=== PATIENT | male | born 1990 | race Caucasian/White ===

== ENCOUNTER 2023-11-11 18:18 | Outpatient (CLI) | payer SELFPAY | END 2023-11-11 23:59 | disposition critical access hospital (66) | LOC: EMS 18:18 | DX: Z04.6 Encounter for general psychiatric examination, requested by authority (principal); R46.2 Strange and inexplicable behavior; R41.82 Altered mental status, unspecified; Z78.1 Physical restraint status | CPT/HCPCS: A0425; A0429 ==

== ENCOUNTER 2023-11-11 18:40 | Emergency (ER) | payer SELFPAY ==
--- NOTE | 2023-11-11 18:58 | ED Physician Documentation ---
History of Present Illness - Stated complaint Stated Complaint: LAW - History obtained from History obtained from: Patient - Additonal information Additional information: He presents by ambulance on an LAW. He was walking in the street naked. Interestingly he admits to doing this but really just cannot say why. Denies history of psychosis, drug use except occasional marijuana. Denies extreme stress. States he lives with his ex and 4-year-old daughter. He has a good job and does not take any medications. PD PAST MEDICAL HISTORY - Present Medications Home Medications: Ambulatory Orders Medication Instructions Recorded Confirmed No Known Home Medications 11/11/23 11/11/23 - Allergies Allergies/Adverse Reactions: Allergies Allergy/AdvReac Type Severity Reaction Status Date / Time No Known Drug Allergies Allergy Verified 11/11/23 18:48 PD ED PE NORMAL - Vitals Vital signs reviewed: Yes - General General: Alert and oriented X 3, No acute distress - HEENT HEENT: PERRL, EOMI - Neck Neck: Supple, no meningeal sign, No bony TTP - Cardiac Cardiac: RRR, No murmur - Respiratory Respiratory: No respiratory distress, Clear bilaterally - Abdomen Abdomen: Normal bowel sounds, Soft, Non tender - Back Back: No CVA TTP, No spinal TTP - Derm Derm: Normal color, Warm and dry - Extremities Extremities: No edema, No calf tenderness / cord - Neuro Neuro: Alert and oriented X 3, 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 When asked almost any other question he performs a quick cogent and coherent response.) Results - Vitals Vitals: Vital Signs - 24 hr 11/11/23 18:48 Temperature 37.3 C Heart Rate 119 H Respiratory 18 Rate Blood Pressure 129/88 H O2 Saturation 98 Oxygen O2 Source Room air - Labs Labs: Laboratory Tests 11/11/23 11/11/23 11/11/23 19:00 19:00 19:06 WBC 7.8 RBC 5.31 Hgb 15.6 Hct 45.6 MCV 85.9 MCH 29.4 MCHC 34.2 RDW 12.9 Plt Count 365 MPV 10.5 Neut # (Auto) 5.3 Lymph # (Auto) 1.7 [place] # (Auto) 0.7 Eos # (Auto) 0.1 Baso # (Auto) 0.0 Absolute Nucleated RBC 0.00 Nucleated RBC % 0.0 Sodium Potassium Chloride Carbon Dioxide Anion Gap BUN Creatinine Estimated GFR (MDRD) Glucose Calcium Magnesium Total Bilirubin AST ALT Alkaline Phosphatase Total Creatine Kinase Total Protein Albumin Globulin Albumin/Globulin Ratio Lipase TSH Urine Color YELLOW Urine Clarity CLEAR Urine pH 8.5 H Ur Specific [place] 1.020 Urine Protein TRACE Urine Glucose (UA) NEGATIVE Urine Ketones 40 H Urine Occult Blood NEGATIVE Urine Nitrite NEGATIVE Urine Bilirubin NEGATIVE Urine Urobilinogen 2 H Ur Leukocyte Esterase NEGATIVE Ur Microscopic Review NOT INDICATED Urine Culture Comments NOT INDICATED Salicylates Urine Opiates Screen NEGATIVE Ur Buprenorphine Scrn NEGATIVE Ur Oxycodone Screen NEGATIVE Urine Methadone Screen NEGATIVE Acetaminophen Ur Barbiturates Screen NEGATIVE Ur Tricyclics Screen NEGATIVE Ur Phencyclidine Scrn NEGATIVE Ur Amphetamine Screen NEGATIVE U Methamphetamines Scrn NEGATIVE U Benzodiazepines Scrn NEGATIVE Urine Cocaine Screen NEGATIVE U Cannabinoids Screen POSITIVE H Ur Drug Screen Comment CUTOFF CONC BELOW: Ethyl Alcohol SARS-CoV-2 (PCR) NOT DETECTED 11/11/23 19:06 WBC RBC Hgb Hct MCV MCH MCHC RDW Plt Count MPV Neut # (Auto) Lymph # (Auto) [place] # (Auto) Eos # (Auto) Baso # (Auto) Absolute Nucleated RBC Nucleated RBC % Sodium 138 Potassium 3.1 L Chloride 104 Carbon Dioxide 26 Anion Gap 8.0 BUN 13 Creatinine 1.0 Estimated GFR (MDRD) 87 L Glucose 156 H Calcium 9.9 Magnesium 2.0 Total Bilirubin 0.9 AST 16 ALT 17 Alkaline Phosphatase 69 Total Creatine Kinase 120 Total Protein 7.7 Albumin 4.9 Globulin 2.8 Albumin/Globulin Ratio 1.8 Lipase 23 TSH 0.80 Urine Color Urine Clarity Urine pH Ur Specific [place] Urine Protein Urine Glucose (UA) Urine Ketones Urine Occult Blood Urine Nitrite Urine Bilirubin Urine Urobilinogen Ur Leukocyte Esterase Ur Microscopic Review Urine Culture Comments Salicylates < 1.5 Urine Opiates Screen Ur Buprenorphine Scrn Ur Oxycodone Screen Urine Methadone Screen Acetaminophen < 0.1 Ur Barbiturates Screen Ur Tricyclics Screen Ur Phencyclidine Scrn Ur Amphetamine Screen U Methamphetamines Scrn U Benzodiazepines Scrn Urine Cocaine Screen U Cannabinoids Screen Ur Drug Screen Comment Ethyl Alcohol < 10.0 SARS-CoV-2 (PCR) PD Medical Decision Making - ED course ED course: He seems okay here, but he will not answer questions for me about why he was walking in the street naked. Any other question he will answer cogently and does not seem to be overtly psychotic. Testing in the emergency department demonstrated unremarkable CBC. Mild hypokalemia on CMP, normal urinalysis and positive toxicology testing for cannabinoids which he had admitted anyway. He was seen by our psychiatric telehealth recruiting and selection consultant who felt he was appropriate for outpatient treatment. Departure - Departure Disposition: 01 Home, Self Care Clinical Impression: Adjustment disorder Qualifiers: Adjustment disorder type: unspecified type Qualified Code(s): F43.20 - Adjustment disorder, unspecified Condition: Good Record reviewed to determine appropriate education?: Yes Instructions: ED Adjustment Disorder Comments: You were seen today by her telepsychiatric provider after you were found walking naked in the street. She did not think you were acutely ill, but does recommend outpatient psychiatric follow-up. Follow-up with your primary care physician for referral for same. Return for new or worsening symptoms. Forms: PCP List Discharge Date/Time: 11/11/23 21:33
[2023-11-11 19:04] VITALS: BP 129/88; O2SAT 98
[2023-11-11 19:27] LABS: BASOPHILS % (AUTO) 0.5 %; EOSINOPHILS # (AUTO) 0.1 10^3/uL (0.0-0.7); EOSINOPHILS % (AUTO) 0.6 %; HCT - HEMATOCRIT 45.6 % (42.0-52.0); HGB - HEMOGLOBIN 15.6 g/dL (14.0-18.0); LYMPHOCYTES # (AUTO) 1.7 10^3/uL (1.5-3.5); LYMPHOCYTES % (AUTO) 21.7 %; MEAN CORPUSCULAR HEMOGLOBIN 29.4 pg (27.0-31.0); MEAN CORPUSCULAR HGB CONC 34.2 g/dL (32.0-36.0); MEAN CORPUSCULAR VOLUME 85.9 fL (80.0-94.0); MEAN PLATELET VOLUME 10.5 fL (7.4-11.4); MONOCYTES # (AUTO) 0.7 10^3/uL (0.0-1.0); MONOCYTES % (AUTO) 9.4 %; NEUTROPHILS # (AUTO) 5.3 10^3/uL (1.5-6.6); NEUTROPHILS % (AUTO) 67.7 %; PLT - PLATELET COUNT 365 10^3/uL (130-450); RED BLOOD COUNT 5.31 10^6/uL (4.70-6.10); RED CELL DISTRIBUTION WIDTH 12.9 % (12.0-15.0); WHITE BLOOD COUNT 7.8 x10^3/uL (4.8-10.8)
[2023-11-11 19:53] LABS: ALBUMIN 4.9 g/dL (3.2-5.5); ALBUMIN/GLOBULIN RATIO 1.8 (1.0-2.2); ALKALINE PHOSPHATASE 69 IU/L (42-121); ALT ALANINE AMINOTRANSFERASE 17 IU/L (10-60); AST ASPARTATE AMINOTRANSFERASE 16 IU/L (10-42); BILIRUBIN,TOTAL 0.9 mg/dL (0.2-1.0); BUN - BLOOD UREA NITROGEN 13 mg/dL (6-20); CALCIUM 9.9 mg/dL (8.5-10.3); CARBON DIOXIDE - CO2 26 mmol/L (21-32); CHLORIDE 104 mmol/L (101-111); CK- CREATINE KINASE 120 IU/L (30-223); ETOH - ETHANOL < 10.0 mg/dL; GFR - MDRD 87 (>89); GLUCOSE 156 mg/dL (74-104); LIPASE 23 U/L (11-82); POTASSIUM 3.1 mmol/L (3.5-4.5); SODIUM 138 mmol/L (135-145); TOTAL PROTEIN 7.7 g/dL (6.4-8.9)
[2023-11-11 19:58] LABS: ACETAMINOPHEN < 0.1 ug/mL; SALICYLATE < 1.5 mg/dL
[2023-11-11 20:02] LABS: BILIRUBIN,URINE NEGATIVE (NEGATIVE); GLUCOSE, URINE (UA) NEGATIVE (NEGATIVE); KETONES,URINE (UA) 40 mg/dL (NEGATIVE); LEUKOCYTE ESTERASE, URINE NEGATIVE (NEGATIVE); NITRITE,URINE NEGATIVE (NEGATIVE); OCCULT BLOOD,URINE NEGATIVE (NEGATIVE); PH,URINE 8.5 PH (5.0-7.5); PROTEIN,URINE TRACE mg/dL (NEGATIVE); UROBILINOGEN,URINE 2 E.U./dL (NORMAL)
[2023-11-11 20:04] LABS: CLARITY,URINE CLEAR (CLEAR)
[2023-11-11 20:11] LABS: AMPHETAMINE SCREEN,URINE NEGATIVE (NEGATIVE); BARBITURATE SCREEN,UR NEGATIVE (NEGATIVE); BENZODIAZEPINES SCREEN, URINE NEGATIVE (NEGATIVE); BUPRENORPHINE SCREEN, URINE NEGATIVE (NEGATIVE); COCAINE SCREEN URINE NEGATIVE (NEGATIVE); METHADONE SCREEN, URINE NEGATIVE (NEGATIVE); METHAMPHETAMINES SCREEN, URINE NEGATIVE (NEGATIVE); OPIATE SCREEN, URINE NEGATIVE (NEGATIVE); OXYCODONE SCREEN, URINE NEGATIVE (NEGATIVE); THC CANNABINOID SCREEN, URINE POSITIVE (NEGATIVE); TRICYCLIC ANTIDEPRESSANT,URINE NEGATIVE (NEGATIVE)
--- NOTE | 2023-11-11 20:42 | TELEPSYCH PHYS NOTE ---
[facility] Telepsych Consult Consult Date: 11/11/23 Name of Referring Provider:: Rip Alcala Reason for Consult: Walking naked - Suicide Risk Sreening (ASQ Tool) In the past few weeks, have you wished you were ?: No In the past few weeks, have you felt that you or your family would be better off if you were ?: No In the past week, have you been having thoughts about killing yourself?: No Have you ever tried to kill yourself?: No - Assessment Language: Andorran Lead Programmer Analyst Required: No Notes: He was walking around the street naked. Chief Complaint: "walking around naked" History of Present Illness: Pt is a 33 yoM w/ no past psychiatric hx who was brought in by ambulance for walking naked. Pt gets aggressive when asking why he was doing it. He states he doesn't want to say. He was calm for the rest of the interview. No delusions elicited. Lives with his ex-girlfriend and daughter. His daughter is 4 years old. [place] [phone]: She states he has been behaving abnormally. States he is overthinking things. He has been more sabianist. He has been reading the Bible and some other books. He has changed his diet to all fruits and veggies. He is trying to quit nicotine. She states today he was breathing very heavy and was very calm. He walked out of the house without shoes. She doesn't have hallucination concerns for him. Firearms are locked. No suicidal/ homicidal concerns for him. She feels safe with him coming home. Denies him having a manic or psychotic episode in the past. Suicide Ideation - Homicide Ideation - Self Harm: Denies SI, denies HI, denies self-harm. Pt reports he wants to live for his daughter. He has a goal of wanting to live gracefully. Psychiatric History - Treatment History: Inpatient psychiatric hospitalization: denies Denies past psychiatric diagnosis Denies past SA Community Resources Accessed: denies having outpatient resources Family Psych History/ History of suicide: sister- Psychiatric diagnosis, but he doesn't know the name Nutritional Status: Decrease in food intake and/or appetite - Medication & Allergies Home Medications: Ambulatory Orders Medication Instructions Recorded Confirmed No Known Home Medications 11/11/23 11/11/23 Allergies/Adverse Reactions: Allergies Allergy/AdvReac Type Severity Reaction Status Date / Time No Known Drug Allergies Allergy Verified 11/11/23 18:48 - Drug & Alcohol History Does patient have Drug/ETOH history or addictive behavior?: No Use: Uses substance without health or social issues: Tobacco - Trauma Does the patient have a history of trauma, abuse, neglect or explotation?: No - Personal Information Does the patient have a history or present tendencies for violence?: None Does patient have any Legal Charges or Investigations?: No Environment & Living Situation - Social, Peer-Group (Note): At home Environment & Living Situation - Social, Peer-Group (Notes): lives with ex-girlfriend and daughter. Identifies having a good support system. Marital Status - Family Circumstances: has 4 year old daughter, never Stressors - Financial Concerns: States a lot has been stressful- Politics have been stressful. He states he has made mistakes like judging people. He states they had a work meeting today. He had an HR meeting today, and a lady bugged him. 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, crawlspaces, pest control Collateral - Interdisciplinary Input: Reviewed ED notes - Medical History Psychiatric: reports: None Neurological: reports: None Eyes, Ears, Nose, Throat: reports: None Cardiovascular: reports: None Respiratory: reports: None Gastrointestinal: reports: None Urinary: reports: None Musculoskeletal: reports: None Skin: reports: None Childhood History: denies hx of trauma - Mental Status Exam Appearance and Attire: hospital clothes, casually groomed Attitude and Behavior: cooperative, no PMA, no PMR Speech: normal rate, amount Affect and Mood: "ok" affect congruent with mood Association and Thought Process: intact association, concrete thought process Thought Content: denies SI, denies HI Perception: denies AVH Sensorium, memory and orientation: alert and oriented to person, place, memory grossly intact Intellectual - Cognitive functioning: fair Insight and Judgement: poor insight, fair judgement Emotional and Behavioral Functioning: fair Ability to Self-Care: fair - Personal Goals Short-term Goals: go home Long-term Goals: continue working and making ends meet - Risk/Protective Factors Risk Factors: Trigger events leading to humiliation, shame and/or despair Protective Factors / Internal: Ability to cope with stress, Frustration tolerance, Fear of or the actual act of killing self, Identifies reasons for living Protective Factors / External: Cultural, spiritual and/or moral attitudes against suicide, Responsibility to children, Supportive social network of family or friends, Engaged in work or school - Plan Impression/Risk Assessment: Pt is a 33 yoM w/ no psychiatric hx who was brought into the ED for walking naked. He will not report why he is walking naked. He denies SI, denies HI. Could not elicit any delusions. He is future-oriented. His ex-girlfriend feels safe with him coming back home. Given this, he is not an acute safety concern and is appropriate for outpatient level of care. His outpatient provider should monitor for any developing signs of psychosis. Treatment - Therapy Recommendations: - Outpatient, therapy, please provide resources Pharmacological Recommendations: none - Problem List (1) Adjustment disorder Conclusion/Plan: Outpatient Qualifiers: Adjustment disorder type: unspecified type Qualified Code(s): F43.20 - Adjustment disorder, unspecified - Time Spent & Provider Location Telepsych consultation conducted via videoconferencing: Yes (yes) List names and roles of persons who participated in consult: Nora Garner MD Telepsych Provider Location: [place] Time Spent (Minutes): 60
== END 2023-11-11 21:33 | disposition home or self-care (01) ==
LOC: ED 18:40
DX: F43.20 Adjustment disorder, unspecified (principal); E87.6 Hypokalemia
CPT/HCPCS: 36415; 80053; 80143; 80179; 80306; 81003; 82077; 82550; 83690; 83735; 84443; 85025; 87635; 90834; 99283; Q3014; 81001; 87086

== ENCOUNTER 2023-12-01 07:03 | Outpatient (CLI) | payer MEDICAID, OTHER | END 2023-12-01 23:59 | disposition critical access hospital (66) | LOC: EMS 07:03 | DX: Z04.6 Encounter for general psychiatric examination, requested by authority (principal); R46.89 Other symptoms and signs involving appearance and behavior | CPT/HCPCS: A0425; A0429 ==

== ENCOUNTER 2023-12-01 07:22 | Emergency (ER) | payer SELFPAY ==
--- NOTE | 2023-12-01 07:50 | ED Physician Documentation ---
PD HPI MHE - Stated complaint Stated Complaint: MHE - Additional information Additional information: This is a 33-year-old gentleman who was brought in by EMS. He was walking around the streets of [facility]. PD was involved and he requested an evaluation. En route for EMS he was mostly cooperative but occasionally have some involuntary shaking type movements and was describing that he "had done a bad thing and he needs to listen to Jose". Patient describes smoking marijuana but states otherwise "I been on a health kick". Patient is able to describe that he has been seen in this ED before, I reviewed his chart from November 10 of this year, about 20 days ago, and he presented with almost the exact same picture. At that time he was medically cleared, his tox ran only positive for THC which he admitted to. He was seen by telepsych and discharged home in the care of his girlfriend. 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 Denies any prior psych diagnoses. Denies any other medications. He knows that he is at [facility] and that it is Thursday. Review of Systems Constitutional: denies: Fever, Chills PD PAST MEDICAL HISTORY - Past Medical History Past Medical History: No Cardiovascular: None Respiratory: None Neuro: None Endocrine/Autoimmune: None GI: None : None HEENT: None Psych: None Musculoskeletal: None Derm: None - Past Surgical History Past Surgical History: No - Present Medications Home Medications: Ambulatory Orders Medication Instructions Recorded Confirmed OLANZapine [Zyprexa Zydis] 5 mg PO DAILY #10 tab 12/01/23 - Allergies Allergies/Adverse Reactions: Allergies Allergy/AdvReac Type Severity Reaction Status Date / Time No Known Drug Allergies Allergy Verified 12/01/23 07:45 - Living Situation Living Situation: reports: Other (Lives in the [facility]. Previously was living with ex-girlfriend and 4-year-old daughter.) - Social History Does the pt smoke?: No Smoking Status: Current some day smoker Does the pt drink ETOH?: No Does the pt have substance abuse?: No Substance Use and Type: Marijuana - Immunizations Immunizations are current?: Yes - POLST Patient has POLST: No PD ED PE NORMAL - Vitals Vital signs reviewed: Yes - General General: Alert and oriented X 3 - HEENT HEENT: Atraumatic, Pharynx benign - Neck Neck: Supple, no meningeal sign, No JVD - Cardiac Cardiac: RRR, No murmur - Respiratory Respiratory: No respiratory distress - Abdomen Abdomen: Normal bowel sounds - Male Male : Deferred - Rectal Rectal: Deferred - Back Back: No CVA TTP - Extremities Extremities: No deformity - Neuro Neuro: Alert and oriented X 3, 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 Answer simple questions. Denies any suicidal or homicidal ideation. Denies any hallucinations. Definitely has some hyperreligious thoughts and feels "judged by Jose". Does not describe himself as particularly zoroastrianism in general. Results - Vitals Vitals: Vital Signs - 24 hr 12/01/23 07:34 Temperature 36.6 C Heart Rate 102 H Respiratory 20 Rate Blood Pressure 131/94 H O2 Saturation 100 Oxygen O2 Source Room air - Labs Labs: Laboratory Tests 12/01/23 12/01/23 12/01/23 07:45 07:50 07:52 WBC 11.0 H RBC 5.10 Hgb 15.0 Hct 47.9 MCV 93.9 MCH 29.4 MCHC 31.3 L RDW 13.4 Plt Count 340 MPV 10.5 Neut # (Auto) 9.1 H Lymph # (Auto) 1.1 L O[place] # (Auto) 0.7 Eos # (Auto) 0.0 Baso # (Auto) 0.0 Absolute Nucleated RBC 0.00 Nucleated RBC % 0.0 Sodium Potassium Chloride Carbon Dioxide Anion Gap BUN Creatinine Estimated GFR (MDRD) Glucose Calcium Total Bilirubin AST ALT Alkaline Phosphatase Total Protein Albumin Globulin Albumin/Globulin Ratio Nasal Adenovirus (PCR) NOT DETECTED Nasal B. parapertussis DNA (PCR) NOT DETECTED Nasal Coronavir 229E PCR NOT DETECTED Nasal Coronavir HKU1 PCR NOT DETECTED Nasal Coronavir NL63 PCR NOT DETECTED Nasal Coronavir OC43 PCR NOT DETECTED Nasal Enterovir/Rhinovir PCR NOT DETECTED Nasal Influenza B PCR NOT DETECTED Nasal Influenza A PCR NOT DETECTED Nasal Parainfluen 1 PCR NOT DETECTED Nasal Parainfluen 2 PCR NOT DETECTED Nasal Parainfluen 3 PCR NOT DETECTED Nasal Parainfluen 4 PCR NOT DETECTED Nasal RSV (PCR) NOT DETECTED Nasal B.pertussis DNA PCR NOT DETECTED Nasal C.pneumoniae (PCR) NOT DETECTED Devan Human Metapneumo PCR NOT DETECTED Nasal M.pneumoniae (PCR) NOT DETECTED Nasal SARS-CoV-2 (PCR) NOT DETECTED Salicylates Urine Opiates Screen NEGATIVE Ur Buprenorphine Scrn NEGATIVE Ur Oxycodone Screen NEGATIVE Urine Methadone Screen NEGATIVE Acetaminophen Ur Barbiturates Screen NEGATIVE Ur Tricyclics Screen NEGATIVE Ur Phencyclidine Scrn NEGATIVE Ur Amphetamine Screen NEGATIVE U Methamphetamines Scrn NEGATIVE U Benzodiazepines Scrn NEGATIVE Urine Cocaine Screen NEGATIVE U Cannabinoids Screen POSITIVE H Ur Drug Screen Comment CUTOFF CONC BELOW: Ethyl Alcohol 12/01/23 07:52 WBC RBC Hgb Hct MCV MCH MCHC RDW Plt Count MPV Neut # (Auto) Lymph # (Auto) O[place] # (Auto) Eos # (Auto) Baso # (Auto) Absolute Nucleated RBC Nucleated RBC % Sodium 138 Potassium 3.3 L Chloride 104 Carbon Dioxide 26 Anion Gap 8.0 BUN 10 Creatinine 0.8 Estimated GFR (MDRD) 112 Glucose 107 H Calcium 10.2 Total Bilirubin 1.0 AST 11 ALT 17 Alkaline Phosphatase 65 Total Protein 7.5 Albumin 4.8 Globulin 2.7 Albumin/Globulin Ratio 1.8 Nasal Adenovirus (PCR) Nasal B. parapertussis DNA (PCR) Nasal Coronavir 229E PCR Nasal Coronavir HKU1 PCR Nasal Coronavir NL63 PCR Nasal Coronavir OC43 PCR Nasal Enterovir/Rhinovir PCR Nasal Influenza B PCR Nasal Influenza A PCR Nasal Parainfluen 1 PCR Nasal Parainfluen 2 PCR Nasal Parainfluen 3 PCR Nasal Parainfluen 4 PCR Nasal RSV (PCR) Nasal B.pertussis DNA PCR Nasal C.pneumoniae (PCR) Devan Human Metapneumo PCR Nasal M.pneumoniae (PCR) Nasal SARS-CoV-2 (PCR) Salicylates < 1.5 Urine Opiates Screen Ur Buprenorphine Scrn Ur Oxycodone Screen Urine Methadone Screen Acetaminophen 0.2 Ur Barbiturates Screen Ur Tricyclics Screen Ur Phencyclidine Scrn Ur Amphetamine Screen U Methamphetamines Scrn U Benzodiazepines Scrn Urine Cocaine Screen U Cannabinoids Screen Ur Drug Screen Comment Ethyl Alcohol < 10.0 PD Medical Decision Making - ED course Complexity details: reviewed old records, reviewed results, re-evaluated patient, d/w market consultant (BUSINESS SYSTEMS ARCHITECT) ED course: Patient calm and cooperative, participates in his care. He declines my offer for 5 mg of sublingual Zyprexa. He will reconsider this later. Evaluation for medical or chemical cause for his apparent psychosis is unremarkable. He has a mild leukocytosis and mild hypokalemia of 3.3. Will give him a potassium supplement. His tox screen is positive only for the cannabinoids which he admitted to. No mass or other psychosis causing agent evident. He is medically cleared at 08 15 for evaluation for behavioral health emergency by our geriatric social worker. Await that evaluation at this time. He is seen by TIMA. He clearly has new onset psychosis and likely has schizophrenia given his family history. He is not thought to be gravely disabled as he has actually been together and functioning in between these episodes. She did not feel that he was gravely disabled in terms of involuntary longterm. The patient is open to outpatient mental health counseling. I will prescribe him Zyprexa sublingual to take in the meantime while he awaits referral and evaluation by [facility] as well as [facility]. He is not homicidal or suicidal. Has no weapons at home. Does not represent an acute danger to himself or others at this time. Stable for outpatient disposition. Should he escalate or have recurrence of bizarre behavior we might consider DCR. - Consults Consults: Discussed case with (TIMA) Departure - Departure Disposition: 01 Home, Self Care Clinical Impression: Psychosis Condition: Fair Instructions: ED Psychosis Prescriptions: OLANZapine [Zyprexa Zydis] 5 mg PO DAILY #10 tab Comments: I have written you a prescription for Zyprexa that I believe would actually help you feel quite a bit better. Take it once daily. Follow-up with [facility] as well as [facility] as referred by the geriatric social worker. We are always here if you change her mind and would like to be reevaluated.
[2023-12-01] MEDS: OLANZapine ODT 5 MG TABLET TL STA (07:51)
[2023-12-01 07:57] LABS: BASOPHILS % (AUTO) 0.3 %; EOSINOPHILS % (AUTO) 0.1 %; HCT - HEMATOCRIT 47.9 % (42.0-52.0); LYMPHOCYTES # (AUTO) 1.1 10^3/uL (1.5-3.5); LYMPHOCYTES % (AUTO) 10.3 %; MEAN CORPUSCULAR HEMOGLOBIN 29.4 pg (27.0-31.0); MEAN CORPUSCULAR HGB CONC 31.3 g/dL (32.0-36.0); MEAN CORPUSCULAR VOLUME 93.9 fL (80.0-94.0); MEAN PLATELET VOLUME 10.5 fL (7.4-11.4); MONOCYTES # (AUTO) 0.7 10^3/uL (0.0-1.0); MONOCYTES % (AUTO) 6.1 %; NEUTROPHILS # (AUTO) 9.1 10^3/uL (1.5-6.6); NEUTROPHILS % (AUTO) 82.9 %; PLT - PLATELET COUNT 340 10^3/uL (130-450); RED CELL DISTRIBUTION WIDTH 13.4 % (12.0-15.0)
[2023-12-01 08:09] LABS: AMPHETAMINE SCREEN,URINE NEGATIVE (NEGATIVE); BARBITURATE SCREEN,UR NEGATIVE (NEGATIVE); BENZODIAZEPINES SCREEN, URINE NEGATIVE (NEGATIVE); BUPRENORPHINE SCREEN, URINE NEGATIVE (NEGATIVE); COCAINE SCREEN URINE NEGATIVE (NEGATIVE); METHADONE SCREEN, URINE NEGATIVE (NEGATIVE); METHAMPHETAMINES SCREEN, URINE NEGATIVE (NEGATIVE); OPIATE SCREEN, URINE NEGATIVE (NEGATIVE); OXYCODONE SCREEN, URINE NEGATIVE (NEGATIVE); THC CANNABINOID SCREEN, URINE POSITIVE (NEGATIVE); TRICYCLIC ANTIDEPRESSANT,URINE NEGATIVE (NEGATIVE)
[2023-12-01 08:11] LABS: ACETAMINOPHEN 0.2 ug/mL; ALBUMIN 4.8 g/dL (3.2-5.5); ALBUMIN/GLOBULIN RATIO 1.8 (1.0-2.2); ALKALINE PHOSPHATASE 65 IU/L (42-121); ALT ALANINE AMINOTRANSFERASE 17 IU/L (10-60); AST ASPARTATE AMINOTRANSFERASE 11 IU/L (10-42); BUN - BLOOD UREA NITROGEN 10 mg/dL (6-20); CALCIUM 10.2 mg/dL (8.5-10.3); CARBON DIOXIDE - CO2 26 mmol/L (21-32); CHLORIDE 104 mmol/L (101-111); CREATININE 0.8 mg/dL (0.6-1.3); ETOH - ETHANOL < 10.0 mg/dL; GFR - MDRD 112 (>89); GLUCOSE 107 mg/dL (74-104); POTASSIUM 3.3 mmol/L (3.5-4.5); SODIUM 138 mmol/L (135-145); TOTAL PROTEIN 7.5 g/dL (6.4-8.9)
[2023-12-01 08:16] LABS: SALICYLATE < 1.5 mg/dL
[2023-12-01] MEDS: POTASSIUM CHLORIDE 20 MEQ TABLET PO STA (08:32)
[2023-12-01 08:45] LABS: B. PARAPERTUSSIS- RESP PCR PAN NOT DETECTED; B. PERTUSSIS- RESP PCR PANEL NOT DETECTED; C. PNEUMONIAE- RESP PCR PANEL NOT DETECTED; CORONAVIRUS 229E-RESP PCR NOT DETECTED; CORONAVIRUS HKU1-RESP PCR NOT DETECTED; CORONAVIRUS NL63-RESP PCR NOT DETECTED; CORONAVIRUS OC43-RESP PCR NOT DETECTED; HUMAN METAPNEUMOVIRUS NOT DETECTED; INFLUENZA A- RESP PCR PANEL NOT DETECTED; INFLUENZA B - RESP PCR PANEL NOT DETECTED; M. PNEUMONIAE- RESP PCR PANEL NOT DETECTED; PARAINFLUENZA VIRUS 1 NOT DETECTED; PARAINFLUENZA VIRUS 2 NOT DETECTED; PARAINFLUENZA VIRUS 3 NOT DETECTED; PARAINFLUENZA VIRUS 4 NOT DETECTED; RHINOVIRUS/ENTEROVIRUS NOT DETECTED; RSV- RESP PCR PANEL NOT DETECTED; SARS-CoV-2 -RESP PCR PANEL NOT DETECTED
[2023-12-01 11:03] VITALS: BP 110/71; O2SAT 96
== END 2023-12-01 11:08 | disposition home or self-care (01) ==
LOC: EDUNIT# → ED 07:22
DX: F29 Unspecified psychosis not due to a substance or known physiological condition (principal); F17.200 Nicotine dependence, unspecified, uncomplicated
CPT/HCPCS: 36415; 80053; 80143; 80179; 80306; 82077; 85025; 87633; 99283; 99284; A9270

== ENCOUNTER 2023-12-04 18:42 | Outpatient (CLI) | payer MEDICAID | END 2023-12-04 23:59 | disposition critical access hospital (66) | LOC: EMS 18:42 | DX: Z04.6 Encounter for general psychiatric examination, requested by authority (principal) | CPT/HCPCS: A0425; A0429 ==

== ENCOUNTER 2023-12-04 19:03 | Emergency (ER) | payer MEDICAID ==
[2023-12-04 19:41] LABS: BASOPHILS % (AUTO) 0.2 %; EOSINOPHILS % (AUTO) 0.4 %; HCT - HEMATOCRIT 49.1 % (42.0-52.0); HGB - HEMOGLOBIN 15.8 g/dL (14.0-18.0); LYMPHOCYTES # (AUTO) 1.3 10^3/uL (1.5-3.5); LYMPHOCYTES % (AUTO) 15.7 %; MEAN CORPUSCULAR HEMOGLOBIN 28.8 pg (27.0-31.0); MEAN CORPUSCULAR HGB CONC 32.2 g/dL (32.0-36.0); MEAN CORPUSCULAR VOLUME 89.6 fL (80.0-94.0); MEAN PLATELET VOLUME 10.4 fL (7.4-11.4); MONOCYTES # (AUTO) 0.6 10^3/uL (0.0-1.0); MONOCYTES % (AUTO) 7.8 %; NEUTROPHILS # (AUTO) 6.2 10^3/uL (1.5-6.6); NEUTROPHILS % (AUTO) 75.8 %; PLT - PLATELET COUNT 372 10^3/uL (130-450); RED BLOOD COUNT 5.48 10^6/uL (4.70-6.10); RED CELL DISTRIBUTION WIDTH 13.1 % (12.0-15.0); WHITE BLOOD COUNT 8.2 x10^3/uL (4.8-10.8)
[2023-12-04 19:53] LABS: BILIRUBIN,URINE SMALL (NEGATIVE); GLUCOSE, URINE (UA) NEGATIVE (NEGATIVE); KETONES,URINE (UA) >=80 mg/dL (NEGATIVE); LEUKOCYTE ESTERASE, URINE NEGATIVE (NEGATIVE); NITRITE,URINE NEGATIVE (NEGATIVE); OCCULT BLOOD,URINE NEGATIVE (NEGATIVE); PROTEIN,URINE NEGATIVE (NEGATIVE); UROBILINOGEN,URINE 4 E.U./dL (NORMAL)
[2023-12-04 19:56] LABS: CLARITY,URINE CLEAR (CLEAR)
[2023-12-04 19:58] LABS: ACETAMINOPHEN 0.1 ug/mL; ALBUMIN 4.8 g/dL (3.2-5.5); ALBUMIN/GLOBULIN RATIO 1.5 (1.0-2.2); ALKALINE PHOSPHATASE 67 IU/L (42-121); ALT ALANINE AMINOTRANSFERASE 21 IU/L (10-60); AST ASPARTATE AMINOTRANSFERASE 18 IU/L (10-42); BUN - BLOOD UREA NITROGEN 16 mg/dL (6-20); CARBON DIOXIDE - CO2 27 mmol/L (21-32); CHLORIDE 103 mmol/L (101-111); CREATININE 1.1 mg/dL (0.6-1.3); ETOH - ETHANOL < 10.0 mg/dL; GFR - MDRD 78 (>89); GLUCOSE 110 mg/dL (74-104); POTASSIUM 3.6 mmol/L (3.5-4.5); SODIUM 138 mmol/L (135-145); TOTAL PROTEIN 7.9 g/dL (6.4-8.9)
[2023-12-04 19:59] LABS: SALICYLATE < 1.5 mg/dL
[2023-12-04 20:03] LABS: AMPHETAMINE SCREEN,URINE NEGATIVE (NEGATIVE); BARBITURATE SCREEN,UR NEGATIVE (NEGATIVE); BENZODIAZEPINES SCREEN, URINE NEGATIVE (NEGATIVE); BUPRENORPHINE SCREEN, URINE NEGATIVE (NEGATIVE); COCAINE SCREEN URINE NEGATIVE (NEGATIVE); METHADONE SCREEN, URINE NEGATIVE (NEGATIVE); METHAMPHETAMINES SCREEN, URINE NEGATIVE (NEGATIVE); OPIATE SCREEN, URINE NEGATIVE (NEGATIVE); OXYCODONE SCREEN, URINE NEGATIVE (NEGATIVE); THC CANNABINOID SCREEN, URINE POSITIVE (NEGATIVE); TRICYCLIC ANTIDEPRESSANT,URINE NEGATIVE (NEGATIVE)
--- NOTE | 2023-12-04 20:11 | ED Physician Documentation ---
PD HPI MHE - Stated complaint Stated Complaint: LAW - Chief complaint Chief Complaint: MHE - History obtained from History obtained from: Patient, EMS - Additional information Additional information: 33-year-old male presents as an LAW for bizarre behavior. Found walking around outside completely naked. This is patient's third event in a month with similar presentation. Patient requesting to speak to a marble polisher hand. He states that he has nothing physically wrong with him, stating that this is a "spiritual issue" PD PAST MEDICAL HISTORY - Past Medical History Past Medical History: Yes Cardiovascular: None Respiratory: None Neuro: None Endocrine/Autoimmune: None GI: None : None HEENT: None Psych: Other Musculoskeletal: None Derm: None - Past Surgical History Past Surgical History: No - Present Medications Home Medications: Ambulatory Orders Medication Instructions Recorded Confirmed No Known Home Medications 12/04/23 12/04/23 - Allergies Allergies/Adverse Reactions: Allergies Allergy/AdvReac Type Severity Reaction Status Date / Time No Known Drug Allergies Allergy Verified 12/01/23 07:45 - Social History Does the pt smoke?: No Smoking Status: Never smoker Does the pt drink ETOH?: No Does the pt have substance abuse?: No - Immunizations Immunizations are current?: Yes - POLST Patient has POLST: No Results - Vitals Vitals: Oxygen O2 Source Room air - Labs Labs: Laboratory Tests 12/04/23 12/04/23 12/04/23 19:30 19:30 19:30 WBC 8.2 RBC 5.48 Hgb 15.8 Hct 49.1 MCV 89.6 MCH 28.8 MCHC 32.2 RDW 13.1 Plt Count 372 MPV 10.4 Neut # (Auto) 6.2 Lymph # (Auto) 1.3 L Sharkey # (Auto) 0.6 Eos # (Auto) 0.0 Baso # (Auto) 0.0 Absolute Nucleated RBC 0.00 Nucleated RBC % 0.0 Sodium 138 Potassium 3.6 Chloride 103 Carbon Dioxide 27 Anion Gap 8.0 BUN 16 Creatinine 1.1 Estimated GFR (MDRD) 78 L Glucose 110 H Calcium 10.0 Total Bilirubin 1.0 AST 18 ALT 21 Alkaline Phosphatase 67 Total Protein 7.9 Albumin 4.8 Globulin 3.1 Albumin/Globulin Ratio 1.5 Urine Color DARK YELLOW Urine Clarity CLEAR Urine pH 6.0 Ur Specific [place] >=1.030 H Urine Protein NEGATIVE Urine Glucose (UA) NEGATIVE Urine Ketones >=80 H Urine Occult Blood NEGATIVE Urine Nitrite NEGATIVE Urine Bilirubin SMALL H Urine Urobilinogen 4 H Ur Leukocyte Esterase NEGATIVE Ur Microscopic Review NOT INDICATED Urine Culture Comments NOT INDICATED Salicylates < 1.5 Urine Opiates Screen NEGATIVE Ur Buprenorphine Scrn NEGATIVE Ur Oxycodone Screen NEGATIVE Urine Methadone Screen NEGATIVE Acetaminophen 0.1 Ur Barbiturates Screen NEGATIVE Ur Tricyclics Screen NEGATIVE Ur Phencyclidine Scrn NEGATIVE Ur Amphetamine Screen NEGATIVE U Methamphetamines Scrn NEGATIVE U Benzodiazepines Scrn NEGATIVE Urine Cocaine Screen NEGATIVE U Cannabinoids Screen POSITIVE H Ur Drug Screen Comment CUTOFF CONC BELOW: Ethyl Alcohol < 10.0 SARS-CoV-2 (PCR) 12/04/23 21:50 WBC RBC Hgb Hct MCV MCH MCHC RDW Plt Count MPV Neut # (Auto) Lymph # (Auto) Sharkey # (Auto) Eos # (Auto) Baso # (Auto) Absolute Nucleated RBC Nucleated RBC % Sodium Potassium Chloride Carbon Dioxide Anion Gap BUN Creatinine Estimated GFR (MDRD) Glucose Calcium Total Bilirubin AST ALT Alkaline Phosphatase Total Protein Albumin Globulin Albumin/Globulin Ratio Urine Color Urine Clarity Urine pH Ur Specific [place] Urine Protein Urine Glucose (UA) Urine Ketones Urine Occult Blood Urine Nitrite Urine Bilirubin Urine Urobilinogen Ur Leukocyte Esterase Ur Microscopic Review Urine Culture Comments Salicylates Urine Opiates Screen Ur Buprenorphine Scrn Ur Oxycodone Screen Urine Methadone Screen Acetaminophen Ur Barbiturates Screen Ur Tricyclics Screen Ur Phencyclidine Scrn Ur Amphetamine Screen U Methamphetamines Scrn U Benzodiazepines Scrn Urine Cocaine Screen U Cannabinoids Screen Ur Drug Screen Comment Ethyl Alcohol SARS-CoV-2 (PCR) NOT DETECTED PD Medical Decision Making - ED course Complexity details: reviewed old records, reviewed results, re-evaluated patient, considered differential, d/w patient, d/w family ED course: Bizarre behavior, recurrent ER visits for same. Patient appears to have some adventism delusions contributing to his behavior. Medical clearance labs ordered. Laboratory work reviewed, patient medically cleared for telepsychiatry evaluation. Patient evaluated by telepsychiatry. They did recommend inpatient stabilization since patient's outpatient treatment does not seem to be working, however patient is adamantly against inpatient treatment. DCR dispatch to evaluate patient. DCR evaluated patient. While they agree that patient's behavior is bizarre, they state that it does not appear to be gravely life-threatening or debilitating. Patient given outpatient counseling resources. Patient discharged to the care of his family in stable condition Departure - Departure Disposition: 01 Home, Self Care Clinical Impression: Bizarre behavior Condition: Stable Instructions: ED Stress React Comments: Follow-up with counseling. I recommend avoiding marijuana in the future as this seems to be related to your incidences. Forms: PCP List Discharge Date/Time: 12/04/23 23:34
--- NOTE | 2023-12-04 21:03 | TELEPSYCH PHYS NOTE ---
[facility] Telepsych Consult Consult Date: 12/04/23 Name of Referring Provider:: ED Reason for Consult: LAW - involuntary treatment act - Suicide Risk Sreening (ASQ Tool) In the past few weeks, have you wished you were ?: Yes In the past few weeks, have you felt that you or your family would be better off if you were ?: No In the past week, have you been having thoughts about killing yourself?: No Have you ever tried to kill yourself?: No - Assessment Language: Ukrainian Button Clamper Required: No Cultural, Sabianist or Spiritual Preferences: recent episcopalian preoccupation noted Notes: NA Chief Complaint: "I was walking around butt naked - I would call it a crisis of gideon - I asked for a general counsel" History of Present Illness: 33 yo male presenting via EMS on LAW secondary to bizarre behaviors. Patient has no formal psychiatric hx however this is the 3rd occasion in the past month in which patient has been observed walking in public completely disrobed. Patient recognizes that these behaviors are inappropriate by "society's standards" however feels compelled by an "all powerful God." Patient laughs inappropriately at times during the psychiatric evaluation. Reports that he has been feeling very anxious recently. States that this is because he understands what God wants but he is struggling to achieve this. Reports that this causes him to lose gideon which subsequently scares him and results in extreme anxiety. Patient denies active suicidal ideation although admits to fleeting passive suicidal ideation. Appears very distressed about his spirituality. Indicates that he is no longer able to stay with his ex-GF and daughter - most likely secondary to his behaviors. He also put in a letter of resignation at his job 3 days ago. While he denies active SI or HI, he does present with impaired cognition and judgment resulting in grave disability. Patient is adamant that he does not require IP tx and is refusing medications. Feels that he only needs a general counsel and a counselor. Discussed case with . In light of sx presentation and recent hx, IP hospitalization for safety and stabilization is warranted. Suicide Ideation - Homicide Ideation - Self Harm: Denies suicidal ideation. Denies homicidal ideation Psychiatric History - Treatment History: No formal psychiatric hx. Denies suicide attempts. Denies psychiatric hospitalizations. No treatment Community Resources Accessed: NA Family Psych History/ History of suicide: sister - psychiatric disorder positive family hx Nutritional Status: Weight loss or gain of 10 pounds or more in the last three months - Medication & Allergies Home Medications: Ambulatory Orders Medication Instructions Recorded Confirmed No Known Home Medications 12/04/23 12/04/23 Allergies/Adverse Reactions: Allergies Allergy/AdvReac Type Severity Reaction Status Date / Time No Known Drug Allergies Allergy Verified 12/01/23 07:45 - Drug & Alcohol History Does patient have Drug/ETOH history or addictive behavior?: Yes Use: Uses substance without health or social issues: Tobacco, Cannabis Use Issues: Intoxication, Anxiety Disorder, Delirium - Trauma Does the patient have a history of trauma, abuse, neglect or explotation?: No History of trauma, abuse, neglect, or exploitation (Notes): does report a hx of bullying as a child - Personal Information Does the patient have a history or present tendencies for violence?: None Services History: [place] Does patient have any Legal Charges or Investigations?: No Environment & Living Situation - Social, Peer-Group (Note): Other Environment & Living Situation - Social, Peer-Group (Notes): [facility] Marital Status - Family Circumstances: single - 4 yo daughter Stressors - Financial Concerns: spirituality, anxiety, interpersonal relationship issues with ex-GF, recently quit job Education: GED Occupation: patient resigned from his job 3 days ago - Medical History Psychiatric: reports: Other Neurological: reports: None Eyes, Ears, Nose, Throat: reports: None Cardiovascular: reports: None Respiratory: reports: None Gastrointestinal: reports: None Urinary: reports: None Musculoskeletal: reports: None Skin: reports: None - Family & Social History Living Situation: Alone, Other (Lives in the [facility]. Previously was living with ex-girlfriend and 4-year-old daughter.) Childhood History: bullied in childhood - Mental Status Exam Appearance and Attire: Appears stated age. Dressed in hospital gown Attitude and Behavior: Calm. Cooperative Speech: Soft spoken. Fluent Affect and Mood: Mood is "anxious." Affect is incongruent at times laughing inappropriately Association and Thought Process: Thoughts are circumstantial. Associations loose Thought Content: Denies SI, HI Perception: Denies hallucinatory activity. Does present with episcopalian preoccupation and appears to be compelled to follow what he perceives as commands from the "all powerful God." Sensorium, memory and orientation: Alert and oriented Intellectual - Cognitive functioning: Average Insight and Judgement: Insight is limited. Judgment is impaired Emotional and Behavioral Functioning: impaired Ability to Self-Care: Able to complete ADLs - Personal Goals Short-term Goals: "go to counseling and talk to a general counsel" Long-term Goals: "to earn God's salvation" - Risk/Protective Factors Risk Factors: Trigger events leading to humiliation, shame and/or despair, Substance intoxication or withdrawal, Pending incarceration or homelessness, Inadequate social supports, Social Isolation Protective Factors / Internal: Sabianist beliefs, Identifies reasons for living Protective Factors / External: Responsibility to children, Supportive social network of family or friends - Plan Impression/Risk Assessment: 33 yo male presenting via EMS on LAW secondary to bizarre behaviors. Patient has no formal psychiatric hx however this is the 3rd occasion in the past month in which patient has been observed walking in public completely disrobed. Patient recognizes that these behaviors are inappropriate by "society's standards" however feels compelled by an "all powerful God." Patient laughs inappropriately at times during the psychiatric evaluation.Complains of increased anxiety and appears distressed. While he denies active SI or HI, he does present with impaired cognition and judgment resulting in grave disability. Patient is adamant that he does not require IP tx and is refusing medications. Feels that he only needs a general counsel and a counselor. Discussed case with MD. In light of sx presentation and recent hx, IP hospitalization for safety and stabilization is warranted Treatment - Therapy Recommendations: supportive Pharmacological Recommendations: would recommend Zyprexa 10 mg IM or PO q 6 hrs PRN agitation - Time Spent & Provider Location Telepsych consultation conducted via videoconferencing: Yes List names and roles of persons who participated in consult: patient. Di Gonzalez [facility] Telepsych Provider Location: remote Time Spent (Minutes): 45
[2023-12-04 23:34] VITALS: BP 126/80; O2SAT 99
== END 2023-12-04 23:34 | disposition home or self-care (01) ==
LOC: EDUNIT# → ED 19:03
DX: R46.89 Other symptoms and signs involving appearance and behavior (principal)
CPT/HCPCS: 36415; 80053; 80143; 80179; 80306; 81003; 82077; 85025; 87635; 99283; G0425; Q3014; 81001; 87086

== ENCOUNTER 2023-12-08 13:02 | Outpatient (CLI) | payer MEDICAID | END 2023-12-08 23:59 | disposition critical access hospital (66) | LOC: EMS 13:02 | DX: F41.9 Anxiety disorder, unspecified (principal); R46.89 Other symptoms and signs involving appearance and behavior | CPT/HCPCS: A0425; A0429; A0999 ==

== ENCOUNTER 2023-12-08 13:24 | Emergency (ER) | payer MEDICAID ==
[2023-12-08 14:01] VITALS: O2SAT 97
--- NOTE | 2023-12-08 14:05 | ED Physician Documentation ---
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 2 weeks ago he had to move out apparently related to his behavior. Ted has refused medications here in the emergency department he has been evaluated by psychiatry twice with recommendation for inpatient services for stabilization of psychosis.The patient has refused inpatient treatment. Today he indicates that he called 911 and he felt that when the medics touched him all of the arteries inside of his chest burst and he has internal bleeding. He would like to be checked for that.The patient is exhibiting signs of hyper-religiosity and he feels that he is demonically possessed and wants to talk to a broach grinder. He has had 2 previous visits for being naked in public. Review of Systems Constitutional: denies: Fever Nose: denies: Congestion Throat: denies: Sore throat Respiratory: denies: Cough GI: denies: Vomiting, Diarrhea Neurologic: denies: Generalized weakness, Focal weakness, Numbness Psychiatric: reports: Delusions, Insomnia. denies: Suicidal, Homicidal PD PAST MEDICAL HISTORY - Past Medical History Cardiovascular: None Respiratory: None Neuro: None Endocrine/Autoimmune: None GI: None : None HEENT: None Psych: Other Musculoskeletal: None Derm: None - Past Surgical History Past Surgical History: No - Present Medications Home Medications: Ambulatory Orders Medication Instructions Recorded Confirmed OLANZapine ODT [Zyprexa Odt] 5 mg TL HS #20 tablet 12/08/23 - Allergies Allergies/Adverse Reactions: Allergies Allergy/AdvReac Type Severity Reaction Status Date / Time No Known Drug Allergies Allergy Verified 12/08/23 13:54 - Social History Does the pt smoke?: No Smoking Status: Never smoker Does the pt drink ETOH?: No Does the pt have substance abuse?: No - Immunizations Immunizations are current?: Yes - POLST Patient has POLST: No PD ED PE NORMAL - Vitals Vital signs reviewed: Yes (hypertensive diastolic ) - General General: Alert and oriented X 3, No acute distress, Well developed/nourished, Other (33-year-old disheveled male has mostly a blank look on his face periodically sticking rolled up nitrile gloves into his ears.) - HEENT HEENT: Atraumatic, PERRL, EOMI - Neck Neck: Supple, no meningeal sign - Cardiac Cardiac: RRR, No murmur - Respiratory Respiratory: No respiratory distress, Clear bilaterally - Abdomen Abdomen: Soft, Non tender - Back Back: No CVA TTP, No spinal TTP - Derm Derm: Normal color, Warm and dry, No rash - Extremities Extremities: No deformity, No edema - Neuro Neuro: Alert and oriented X 3, heating element repairer 2-12 intact, No motor deficit, No sensory deficit, Normal speech Eye Opening: Spontaneous Motor: Obeys Commands Verbal: Oriented GCS Score: 15 - Psych Psych: Other (The mood is suspicious and the affect is blunted) Results - Vitals Vitals: Vital Signs - 24 hr 12/08/23 12/08/23 13:50 18:03 Temperature 36.7 C 36.7 C Heart Rate 68 91 Respiratory 16 18 Rate Blood Pressure 119/101 H 137/104 H O2 Saturation 97 97 Oxygen O2 Source Room air - Rads (name of study) chest Relevant Findings:: Prelim report reviewed (Impression: No acute cardiopulmonary process.), EMP independent interpretation of test, See rad report PD Medical Decision Making - ED course Complexity details: reviewed old records, re-evaluated patient, considered differential, d/w patient, d/w family ED course: Ted Herrera is a 33-year-old male who appears to be having a psychotic break. He has not slept in 3 weeks he is hyperreligious feels that he is demonic Albin possessed and has delusions about his health. He feels there is internal bleeding occurring in his chest. This is the patient's fourth visit to the emergency department. He has refused medication and he has refused laboratory studies today. We were fortunate enough to have his sister come to the emergency department and describe another sister who has had a similar psychotic break at his age who is currently on medication and holding down a job and a place to live. Despite this example being placed in front of the patient he continues to refuse medication.In a shared conversation with the patient and his sister we were able to formulate a plan for the patient to potentially take medication and follow-up with counseling. I have offered to prescribe Zyprexa 5 mg to be given nightly and to offer follow-up. Departure - Departure Disposition: 01 Home, Self Care Clinical Impression: Psychosis Qualifiers: Psychosis type: unspecified psychosis type Qualified Code(s): F29 - Unspecified psychosis not due to a substance or known physiological condition Instructions: ED Psychosis Follow-Up: [facility] [Provider Group] Prescriptions: OLANZapine ODT [Zyprexa Odt] 5 mg TL HS #20 tablet Comments: Trevyn, today it looks like you are continuing to have an issue with acute psychosis including some delusions. This is an uncomfortable feeling and it is equally uncomfortable for the people around you. There is medication that can assist with this and I think that you will find that if you begin taking this you will begin to think more clearly. Today you have refused treatment and evaluation. With shared decision making we have come to a plan for medication and follow-up. I have E scribed some Zyprexa. Take this pill under your tongue each night and expect a good night of sleep and a rested feeling in the morning with more clear thoughts. I have given you the name of a clinic for follow-up and counseling. Forms: PCP List Discharge Date/Time: 12/08/23 18:22
--- NOTE | 2023-12-08 14:20 | XRAY Report ---
PROCEDURE: Chest 1V INDICATIONS: chest pain R upper TECHNIQUE: One view of the chest was acquired. COMPARISON: None. FINDINGS: Surgical changes and devices: None. Lungs and pleura: No pleural effusions or pneumothorax. Lungs are clear. Mediastinum: Mediastinal contours appear normal. Heart size is normal. Bones and chest wall: No suspicious bony lesions. Overlying soft tissues appear unremarkable. IMPRESSION: No acute cardiopulmonary process. Reviewed by: Demetrio Oliver MD on 12/08/2023 2:18 PM PDT Approved by: Demetrio Oliver MD on 12/08/2023 2:18 PM PDT Station ID: [id number]
[2023-12-08] MEDS: OLANZapine ODT 5 MG TABLET TL ONE (14:45)
[2023-12-08 18:14] VITALS: BP 137/104
== END 2023-12-08 18:22 | disposition home or self-care (01) ==
LOC: EDBD → EDUNIT# → ED 13:24
DX: F29 Unspecified psychosis not due to a substance or known physiological condition (principal); F22 Delusional disorders
CPT/HCPCS: 71045; 99283; 99284; A9270; 80053; 80143; 80179; 82077; 83690; 85025